=== PATIENT | male | born 1985 | race Caucasian/White ===

== ENCOUNTER 2016-12-08 14:47 | Emergency (ER) | payer OTHER ==
--- NOTE | 2016-12-08 15:15 | ED CLINICAL REPORT ---
Clinical Report - Physicians/Mid Levels [facility] [address] [place] [address] 12/08/2016 14:48 Patient: NADINE LINDQUIST Time Seen: 1503Dec 08 2016. Arrived- By private vehicle. Historian- patient. HISTORY OF PRESENT ILLNESS Chief Complaint: Injury to the left shoulder. 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 Patient did not fall. This was not an incised wound or caused by a direct blow. Patient is experiencing mild pain. Patient denies injury to the neck. ( right-hand dominant individual who is been experiencing left shoulder pain over the last few months, pain worsens with any activity, especially overhead, at times he has had paresthesias. Denies any pain with no movement. Denies any direct trauma or fall. 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 he denies shortness of breath, chest pain. Denies any recent illness. Denies history of PE or DVT.). REVIEW OF SYSTEMS The patient has had tingling. No skin laceration. All systems otherwise negative, except as recorded above. PAST HISTORY The patient's dominant hand is the right. SOCIAL HISTORY Never smoker. Alcohol use. ADDITIONAL NOTES The nursing notes have been reviewed. PHYSICAL EXAM Vital Signs: 12/08/2016 14:57 BP: 130/75. HR: 68. RR: 14. O2 saturation: 100%. Temp: 97.9 F. Pain level now: 6/10. Appearance: Alert. Head: Head atraumatic. CVS: Normal heart rate and rhythm. Heart sounds normal. Respiratory: No respiratory distress. Breath sounds normal. Skin: Skin warm. Normal skin color. Extremities: No upper extremity soft tissue tenderness. Left clavicle area. No tenderness or laceration. Left shoulder. No tenderness or swelling. Left arm. No tenderness or swelling. Left hand. (good ns) No abrasion or foreign body. (pain with elevation and abduction). Neuro, Vascular and Tendons: Vascular status intact. Motor intact. No functional tendon deficit. Neuro: Oriented X 3. PROGRESS AND PROCEDURES Course of Care: patient with ongoing symptoms over the last few months, at this time I do not suspect cardiac etiology. Patient has limited symptoms , Symptoms exacerbated by movement. Patient very stable. Followed outpatient. Patient requesting a sling, however this time he has fair range of motion I did not think a sling is beneficial, as it will have significant disuse of multiple other muscle groups for his upper extremity. Patient understands plan. Patient is stable. Physical exam findings are improved. Symptoms better. Patient/family counseled. Disposition: Discharged. Condition: good. CLINICAL IMPRESSION Acute cervical radiculopathy. Sprain of the left rotator cuff. INSTRUCTIONS Limit use of your left hand for seven days. Prescription Medications: Ibuprofen 800 mg tablets: take 1 tablet orally every 8 hours for 4 days, as needed for pain. Dispense twenty (20). No refill. Follow-up: Follow up with a specialist. [facility] , [address] [facility] [address] Follow up in one week. (Electronically signed by Oriana Silva P.A.-C 12/08/2016 15:17)
--- NOTE | 2016-12-08 15:15 | ED CLINICAL REPORT ---
Clinical Report - Physicians/Mid Levels [facility] [address] [place] [address] 12/08/2016 14:48 Patient: NADINE LINDQUIST Time Seen: 1503Dec 08 2016. Arrived- By private vehicle. Historian- patient. HISTORY OF PRESENT ILLNESS Chief Complaint: Injury to the left shoulder. 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 Patient did not fall. This was not an incised wound or caused by a direct blow. Patient is experiencing mild pain. Patient denies injury to the neck. ( right-hand dominant individual who is been experiencing left shoulder pain over the last few months, pain worsens with any activity, especially overhead, at times he has had paresthesias. Denies any pain with no movement. Denies any direct trauma or fall. 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 he denies shortness of breath, chest pain. Denies any recent illness. Denies history of PE or DVT.). REVIEW OF SYSTEMS The patient has had tingling. No skin laceration. All systems otherwise negative, except as recorded above. PAST HISTORY The patient's dominant hand is the right. SOCIAL HISTORY Never smoker. Alcohol use. ADDITIONAL NOTES The nursing notes have been reviewed. PHYSICAL EXAM Vital Signs: 12/08/2016 14:57 BP: 130/75. HR: 68. RR: 14. O2 saturation: 100%. Temp: 97.9 F. Pain level now: 6/10. Appearance: Alert. Head: Head atraumatic. CVS: Normal heart rate and rhythm. Heart sounds normal. Respiratory: No respiratory distress. Breath sounds normal. Skin: Skin warm. Normal skin color. Extremities: No upper extremity soft tissue tenderness. Left clavicle area. No tenderness or laceration. Left shoulder. No tenderness or swelling. Left arm. No tenderness or swelling. Left hand. (good ns) No abrasion or foreign body. (pain with elevation and abduction). Neuro, Vascular and Tendons: Vascular status intact. Motor intact. No functional tendon deficit. Neuro: Oriented X 3. PROGRESS AND PROCEDURES Course of Care: patient with ongoing symptoms over the last few months, at this time I do not suspect cardiac etiology. Patient has limited symptoms , Symptoms exacerbated by movement. Patient very stable. Followed outpatient. Patient requesting a sling, however this time he has fair range of motion I did not think a sling is beneficial, as it will have significant disuse of multiple other muscle groups for his upper extremity. Patient understands plan. Patient is stable. Physical exam findings are improved. Symptoms better. Patient/family counseled. Disposition: Discharged. Condition: good. CLINICAL IMPRESSION Acute cervical radiculopathy. Sprain of the left rotator cuff. INSTRUCTIONS Limit use of your left hand for seven days. Prescription Medications: Ibuprofen 800 mg tablets: take 1 tablet orally every 8 hours for 4 days, as needed for pain. Dispense twenty (20). No refill. Follow-up: Follow up with a specialist. [facility], , [address] [place] [address] Follow up in one week. (Electronically signed by Oriana Silva P.A.-C 12/08/2016 15:17)
--- NOTE | 2016-12-08 15:15 | ED NURSING NOTES ---
Clinical Report - Nurses [facility] [place] [address] [address] 12/08/2016 14:48 Patient: NADINE LINDQUIST TRIAGE Triage time 14:57. Acuity: LEVEL 5. Chief Complaint: RIGHT UPPER EXTREMITY PAIN and TINGLING. Location of symptoms- right shoulder, right arm and right elbow (tingling on fingers). --15: Devan Natarajan R.N. 14:57 12/08/16. BP: 130/75. HR: 68. RR: 14. O2 saturation: 100%. Temp: 97.9 F (oral). Pain level now: 11/22. --15: Devan Natarajan R.N. Weight: 78.4 kg stated. Height/Length: 72 inches Per Patient. BMI: 23.5. --15:00 Devan Natarajan R.N. Medications None. --14:59 Devan Natarajan R.N. Medication/allergy information source: the patient. --15: Devan Natarajan R.N. Allergies No Known Drug Allergy. --14:59 Devan Natarajan R.N. History Arrived by private vehicle. Historian: patient. ( Ongoing pain on left shoulder radiating to the left upper arm/elbow, pain is worse on movement. Normal ROM. Denies trauma or injury.). No injury occurred. Provoking / relieving factors: worsened by movement. SOCIAL HX: Never smoker. Occasional alcohol use; consumes wine by the glass. --15: Devan Natarajan R.N. 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 --15:02 Devan Natarajan R.N. PROBLEMS: URI. Healing Wound. --15:00 Devan Natarajan R.N. Interventions ID band on patient. --15:01 Devan Natarajan R.N. PHYSICAL ASSESSMENT Ambulatory to room. GENERAL / NEURO / PSYCH: Oriented X 4. Alert. Appears in no acute distress. EXTREMITIES: Extremities exhibit normal ROM. Neuro-vascular status intact to the extremity. No upper extremity edema. Left shoulder: tenderness located in the posterior aspect of the shoulder. Left arm. Left elbow. SKIN: Skin intact. Skin is warm and dry. --15:02 Devan Natarajan R.N. NURSING PROGRESS NOTES Cold pack applied. Neuro-vascular extremity check. Patient identifiers checked. Side rails up. Bed placed in lowest position. Brakes of bed on. Patient ready for evaluation- PA notified. --15:03 Devan Natarajan R.N. DISPOSITION / DISCHARGE Condition at departure: stable. No learning barriers present. Discharge instructions provided and reviewed with the patient. Reviewed medication(s) side effects, precautions, dosing and course information. Prescription(s) given to the patient. Reviewed referrals for followup (Ortho clinic). Activity restrictions (light lifting) reviewed. Work note given. Patient verbalized understanding. Written instructions provided in Yoruba. The patient was discharged home. He left the Emergency Department ambulatory and via private vehicle. Patient driving. ( applied ice pack on the shoulder). --15:13 Devan Natarajan R.N. 15:10 12/08/16. BP: 132/68. HR: 68. RR: 14. O2 saturation: 100%. Temp: deferred. Pain level now: 11/22. --15:13 Devan Natarajan R.N. Departure time: 15:13. --15:13 Devan Natarajan R.N. Locked/Released at 12/08/2016 15:13 by Devan Natarajan R.N.
--- NOTE | 2016-12-08 15:15 | ED NURSING NOTES ---
Clinical Report - Nurses [facility] [place] [address] 12/08/2016 14:48 Patient: NADINE LINDQUIST TRIAGE Triage time 14:57. Acuity: LEVEL 5. Chief Complaint: RIGHT UPPER EXTREMITY PAIN and TINGLING. Location of symptoms- right shoulder, right arm and right elbow (tingling on fingers). --15: Devan Natarajan R.N. 14:57 12/08/16. BP: 130/75. HR: 68. RR: 14. O2 saturation: 100%. Temp: 97.9 F (oral). Pain level now: 11/22. --15: Devan Natarajan R.N. Weight: 78.4 kg stated. Height/Length: 72 inches Per Patient. BMI: 23.5. --15:00 Devan Natarajan R.N. Medications None. --14:59 Devan Natarajan R.N. Medication/allergy information source: the patient. --15: Devan Natarajan R.N. Allergies No Known Drug Allergy. --14:59 Devan Natarajan R.N. History Arrived by private vehicle. Historian: patient. ( Ongoing pain on left shoulder radiating to the left upper arm/elbow, pain is worse on movement. Normal ROM. Denies trauma or injury.). No injury occurred. Provoking / relieving factors: worsened by movement. SOCIAL HX: Never smoker. Occasional alcohol use; consumes wine by the glass. --15: Devan Natarajan R.N. 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 --15:02 Devan Natarajan R.N. PROBLEMS: URI. Healing Wound. --15:00 Devan Natarajna R.N. Interventions ID band on patient. --15:01 Devan Natarajan R.N. PHYSICAL ASSESSMENT Ambulatory to room. GENERAL / NEURO / PSYCH: Oriented X 4. Alert. Appears in no acute distress. EXTREMITIES: Extremities exhibit normal ROM. Neuro-vascular status intact to the extremity. No upper extremity edema. Left shoulder: tenderness located in the posterior aspect of the shoulder. Left arm. Left elbow. SKIN: Skin intact. Skin is warm and dry. --15:02 Devan Natarajan R.N. NURSING PROGRESS NOTES Cold pack applied. Neuro-vascular extremity check. Patient identifiers checked. Side rails up. Bed placed in lowest position. Brakes of bed on. Patient ready for evaluation- PA notified. --15:03 Devan Natarajan R.N. DISPOSITION / DISCHARGE Condition at departure: stable. No learning barriers present. Discharge instructions provided and reviewed with the patient. Reviewed medication(s) side effects, precautions, dosing and course information. Prescription(s) given to the patient. Reviewed referrals for followup (Ortho clinic). Activity restrictions (light lifting) reviewed. Work note given. Patient verbalized understanding. Written instructions provided in Wolof. The patient was discharged home. He left the Emergency Department ambulatory and via private vehicle. Patient driving. ( applied ice pack on the shoulder). --15:13 Devan Natarajan R.N. 15:10 12/08/16. BP: 132/68. HR: 68. RR: 14. O2 saturation: 100%. Temp: deferred. Pain level now: 11/22. --15:13 Devan Natarajan R.N. Departure time: 15:13. --15:13 Devan Natarajan R.N. Locked/Released at 12/08/2016 15:13 by Devan Natarajan R.N.
--- NOTE | 2016-12-08 15:18 | ED DISCHARGE INSTRUCTIONS ---
Patient: NADINE LINDQUIST General Instructions [facility] VisitID: [id number] [address] [place] [address] 31y, M Registration Date/Time: 12/08/2016 Acute cervical radiculopathy. Sprain of the left rotator cuff. INSTRUCTIONS Limit use of your left hand for seven days. Prescription Medications: Ibuprofen 800 mg tablets: take 1 tablet orally every 8 hours for 4 days, as needed for pain. Dispense twenty (20). No refill. Follow-up: Follow up with a specialist. Follow-up with: [facility], [facility], , [address] [place], [address] Follow up in one week. ADDITIONAL INFORMATION Shoulder Sprain A sprain is a stretching or tearing of the ligaments that hold a joint together. A sprain may take up to six weeks to fully heal, depending on how severe it is. Moderate to severe shoulder sprains are treated with a sling or shoulder immobilizer. Minor sprains can be treated without any special support. Home care The following guidelines will help you care for your injury at home: If a sling was provided, leave it in place for the time advised by your doctor. If you are unsure how long to wear it, ask for advice. If the sling becomes loose, adjust it so that your forearm is level with the ground and the shoulder feels well supported. Apply an ice pack (ice cubes in a plastic bag, wrapped in a thin towel) over the injured area for 20 minutes every 12 hours the first day. Continue with ice packs 34 times a day for the next two days, then as needed for the relief of pain and swelling. You may use acetaminophen or ibuprofen to control pain, unless another pain medicine was prescribed.If you have chronic liver or kidney disease or ever had a stomach ulcer or GI bleeding, talk with your doctor before using these medicines. Shoulder joints become stiff if left in a sling for too long. Range of motion exercises should usually be started within the first ten days after injury. Consult your doctor on what type of exercises to do and how soon to start. Follow-up care Follow up with your doctor as directed. Any X-rays you had today dont show any broken bones, breaks, or fractures. Sometimes fractures dont show up on the first X-ray. Bruises and sprains can sometimes hurt as much as a fracture. These injuries can take time to heal completely. If your symptoms dont improve or they get worse, talk with your doctor. You may need a repeat X-ray. When to seek medical care Get prompt medical attention if any of the following occur: Increasing shoulder pain or arm swelling Fingers become cold, blue, numb, or tingly Large amount of bruising of the shoulder or upper arm Pinched Nerve, Neck [Cervical Radiculopathy] A pinched nerve in the neck (also called "Cervical Radiculopathy") is caused by irritation or pressure on the nerve that goes from the spinal cord to the arm. This may be caused by a bulging spinal disk (a "spinal disk" is the cushion between each spinal bone) or narrowing of the spinal joint due to arthritis. This can cause numbness, tingling, deep aching or electrical shooting pain from the side of the neck all the way down to the fingers on one side. A pinched nerve may begin after a sudden turning/bending force (such as in a car accident) or after a simple awkward movement. In either case, muscle spasm is commonly present and contributes to the pain. Home Care: 1) Rest and relax the muscles. Use a comfortable pillow that supports the head and keeps the spine in a neutral position. The position of the head should not be tilted forward or backward. A rolled up towel may help for a custom fit. 2) Some persons find relief with heat (hot shower, hot bath or heating pad) and massage, while others prefer cold packs (crushed or cubed ice in a plastic bag, wrapped in a towel) . Try both and use the method that feels best for 20 minutes several times a day. 3) You may use acetaminophen (Tylenol) or ibuprofen (Motrin, Advil) to control pain, unless another medicine was prescribed. [ NOTE : If you have chronic liver or kidney disease or ever had a stomach ulcer or GI bleeding, talk with your doctor before using these medicines.] Follow Up with your physician or this facility if your symptoms do not show signs of improvement after one week. Further testing may be needed. [NOTE: If x-rays were taken, they will be reviewed by a radiologist. You will be notified of any new findings that may affect your care.] Get Prompt Medical Attention if any of the following occur: -- Pain becomes worse and not controlled by prescribed pain medicine -- Weakness in the arm -- Increasing numbness in the arm -- Trouble breathing or swallowing You have been given the following additional information: Shoulder Sprain Radiculopathy, Cervical Limit use of your left hand for seven days. (Electronically signed by Oriana Silva P.A.-C 12/08/2016 15:17)
--- NOTE | 2016-12-08 15:18 | ED MED RECONCILIATION SUMMARY ---
Patient: NADINE LINDQUIST Medication Reconciliation Report [facility] VisitID: [id number] [place] [address] 31y, M Registration Date/Time: 12/08/2016 Weight: 78.4 kg Height/Length: 72 in. BMI: 23.5 ALLERGIES: No Known Drug Allergy The patient's Home Medications are listed below: NONE. The source(s) of the original Home Medication information: patient The following Medications were given to the patient in the Emergency Department: None. The following Medications were prescribed to the patient: Ibuprofen 800 mg tablets: take 1 tablet orally every 8 hours for 4 days, as needed for pain. Dispense twenty (20). No refill. -- Oriana Silva PMilkaAMilka-C
--- NOTE | 2016-12-08 15:18 | ED MED RECONCILIATION SUMMARY ---
Patient: NADINE LINDQUIST Medication Reconciliation Report [facility] VisitID: [id number] [place] [address] 31y, M Registration Date/Time: 12/08/2016 Weight: 78.4 kg Height/Length: 72 in. BMI: 23.5 ALLERGIES: No Known Drug Allergy The patient's Home Medications are listed below: NONE. The source(s) of the original Home Medication information: patient The following Medications were given to the patient in the Emergency Department: None. The following Medications were prescribed to the patient: Ibuprofen 800 mg tablets: take 1 tablet orally every 8 hours for 4 days, as needed for pain. Dispense twenty (20). No refill. -- Oriana Silva PMilkaAMilka-C
--- NOTE | 2016-12-08 15:18 | ED MAR SUMMARY ---
..... Medication Administration Record [facility] [address] [place] [address] Patient: NADINE LINDQUIST Visit ID: [id number] 31y, M Weight: 78.4 kg Height/Length: 72 in BMI: 23.5 ALLERGIES: No Known Drug Allergy
--- NOTE | 2016-12-08 15:18 | ED MAR SUMMARY ---
..... Medication Administration Record [facility] [address] [place] [address] Patient: NADINE LINDQUIST Visit ID: [id number] 31y, M Weight: 78.4 kg Height/Length: 72 in BMI: 23.5 ALLERGIES: No Known Drug Allergy
== END 2016-12-08 15:13 | disposition home or self-care (01) ==
LOC: ED SRH 14:47
DX: S43.422A Sprain of left rotator cuff capsule, initial encounter (principal); X58.XXXA Exposure to other specified factors, initial encounter; Y93.89 Activity, other specified; Y92.89 Other specified places as the place of occurrence of the external cause; Y99.8 Other external cause status; M54.12 Radiculopathy, cervical region

== ENCOUNTER 2017-01-02 21:38 | Emergency (ER) | payer OTHER ==
--- NOTE | 2017-01-03 00:13 | DIAGNOSTIC IMAGING REPORT ---
PROCEDURE: XR CERVICAL SPINE 2 OR 3 VIEW INDICATION: NECK PAIN TECHNIQUE: Three views. COMPARISON: None. FINDINGS: Straightening of the cervical lordosis. Osseous structures and disc spaces are otherwise normal. No evidence of an acute process or fracture. Impacted posterior molars. IMPRESSION: 1. Straightening of the cervical lordosis suggest cervical spasm. 2. Otherwise negative cervical spine. 3. Impacted posterior molars.
--- NOTE | 2017-01-03 00:53 | ED ORDER SUMMARY ---
..... Patient: NADINE CONCEPCION OrderSheet [facility] VisitID: [id number] [place] [address] 31y, M Registration Date/Time: 01/02/2017 ORDER SHEET Weight: 79.3 kg (stated) Allergies: No Known Drug Allergy GENERAL ORDERS: Cervical Spine 2 or 3V Urgent (23:25 01/02/2017 Michael Real) (Ack 23:31 [facility] Trailer Steerer) (0:23 CH[facility] Trailer Steerer) MEDICATION ORDERS: IV FLUIDS: ORDER SHEET NOTES: [Electronically signed by Devan Natarajan R.N. (01:00 01/03/2017)] [Electronically signed by García George Dr[address] (08:41 01/03/2017)] [Electronically locked/signed by Devan Natarajan R.N. (01:00 01/03/2017)]
--- NOTE | 2017-01-03 00:53 | ED NURSING NOTES ---
Clinical Report - Nurses [facility] [address] [place] [address] 01/02/2017 21:40 Patient: NADINE CONCEPCION TRIAGE Triage time 22:32. Acuity: LEVEL 4. Chief Complaint: LEFT UPPER EXTREMITY PAIN and TINGLING. Location of symptoms- left shoulder. --22:37 Devan Natarajan R.N. 22:32 01/02/17. BP: 113/69. HR: 81. RR: 16. O2 saturation: 99%. Temp: 98.1 F. Pain level now: 01/22. --22:37 Devan Natarajan R.N. Weight: 79.3 kg stated. Height/Length: 72 inches Per Patient. BMI: 23.7. --22:36 Devan Natarajan R.N. Medications None. --22:35 Devan Natarajan R.N. Medication/allergy information source: the patient. --22:37 Devan Natarajan R.N. Allergies No Known Drug Allergy. --22:35 Devan Natarajan R.N. History Arrived by private vehicle. Historian: patient. ( Was seen in ER 12/08 for left shoulder pain, no injury or trauma. Since then pain on left shoulder remains the same, increasing pain with ROM.). No injury occurred. This occurred (1 months ago). It is described as radiating to the left upper extremity, upper arm and forearm. 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 SURGERY HX: No history of previous surgery. SOCIAL HX: Never smoker. --22:37 Devan Natarajan R.N. PROBLEMS: Cervical Radiculopathy. Sprain. URI. Healing Wound. --22:35 Devan Natarajan R.N. Interventions ID band on patient. To room. --22:37 Devan Natarajan R.N. PHYSICAL ASSESSMENT Ambulatory to room. GENERAL / NEURO / PSYCH: Oriented X 4. Alert. Appears in no acute distress. EXTREMITIES: Limited ROM present in the left shoulder. Neuro-vascular status intact to the extremity. No upper extremity edema. Left shoulder. Limited ROM due to pain. SKIN: Skin intact. Skin is warm and dry. --22:37 Devan Natarajan R.N. NURSING PROGRESS NOTES Neuro-vascular extremity check. Patient identifiers checked. Call light placed in reach. Patient placed in chair. Patient ready for evaluation- ED physician notified. --22:38 Devan Natarajan R.N. DISPOSITION / DISCHARGE Condition at departure: improved. No learning barriers present. Discharge instructions provided and reviewed with the patient. Reviewed medication(s) side effects, precautions, dosing and course information. Prescription(s) given to the patient. Reviewed referral to a primary care physician for followup. Patient verbalized understanding. Written instructions provided in Namibian. The patient was discharged home. He left the Emergency Department ambulatory and via private vehicle. Patient driving. --01:00 Devan Natarajan R.N. 00:58 01/03/17. BP: 120/81. HR: 71. RR: 16. O2 saturation: 100%. Temp: 98.0 F. --01:00 Devan Natarajan R.N. Departure time: 01:00. --01:00 Devan Natarajan R.N. Locked/Released at 01/03/2017 1:00 by Devan Natarajan R.N.
--- NOTE | 2017-01-03 00:53 | ED NURSING NOTES ---
Clinical Report - Nurses [facility] [address] [place] [address] 01/02/2017 21:40 Patient: NADINE CONCEPCION TRIAGE Triage time 22:32. Acuity: LEVEL 4. Chief Complaint: LEFT UPPER EXTREMITY PAIN and TINGLING. Location of symptoms- left shoulder. --22:37 Devan Natarajan R.N. 22:32 01/02/17. BP: 113/69. HR: 81. RR: 16. O2 saturation: 99%. Temp: 98.1 F. Pain level now: 01/22. --22:37 Devan Natarajan R.N. Weight: 79.3 kg stated. Height/Length: 72 inches Per Patient. BMI: 23.7. --22:36 Devan Natarajan R.N. Medications None. --22:35 Devan Natarajan R.N. Medication/allergy information source: the patient. --22:37 Devan Natarajan R.N. Allergies No Known Drug Allergy. --22:35 Devan Natarajan R.N. History Arrived by private vehicle. Historian: patient. ( Was seen in ER 12/08 for left shoulder pain, no injury or trauma. Since then pain on left shoulder remains the same, increasing pain with ROM.). No injury occurred. This occurred (1 months ago). It is described as radiating to the left upper extremity, upper arm and forearm. 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 SURGERY HX: No history of previous surgery. SOCIAL HX: Never smoker. --22:37 Devan Natarajan R.N. PROBLEMS: Cervical Radiculopathy. Sprain. URI. Healing Wound. --22:35 Devan Natarajan R.N. Interventions ID band on patient. To room. --22:37 Devan Natarajan R.N. PHYSICAL ASSESSMENT Ambulatory to room. GENERAL / NEURO / PSYCH: Oriented X 4. Alert. Appears in no acute distress. EXTREMITIES: Limited ROM present in the left shoulder. Neuro-vascular status intact to the extremity. No upper extremity edema. Left shoulder. Limited ROM due to pain. SKIN: Skin intact. Skin is warm and dry. --22:37 Devan Natarajan R.N. NURSING PROGRESS NOTES Neuro-vascular extremity check. Patient identifiers checked. Call light placed in reach. Patient placed in chair. Patient ready for evaluation- ED physician notified. --22:38 Devan Natarajan R.N. DISPOSITION / DISCHARGE Condition at departure: improved. No learning barriers present. Discharge instructions provided and reviewed with the patient. Reviewed medication(s) side effects, precautions, dosing and course information. Prescription(s) given to the patient. Reviewed referral to a primary care physician for followup. Patient verbalized understanding. Written instructions provided in Italian. The patient was discharged home. He left the Emergency Department ambulatory and via private vehicle. Patient driving. --01:00 Devan Natarajan R.N. 00:58 01/03/17. BP: 120/81. HR: 71. RR: 16. O2 saturation: 100%. Temp: 98.0 F. --01:00 Devan Natarajan R.N. Departure time: 01:00. --01:00 Devan Natarajan R.N. Locked/Released at 01/03/2017 1:00 by Devan Natarajan R.N.
--- NOTE | 2017-01-03 00:53 | ED ORDER SUMMARY ---
..... Patient: NADINE CONCEPCION OrderSheet [facility] VisitID: [id number] [place] [address] 31y, M Registration Date/Time: 01/02/2017 ORDER SHEET Weight: 79.3 kg (stated) Allergies: No Known Drug Allergy GENERAL ORDERS: Cervical Spine 2 or 3V Urgent (23:25 01/02/2017 Michael Real) (Ack 23:31 [facility] Acting Instructor) (0:23 CHagerty [facility] Acting Instructor) MEDICATION ORDERS: IV FLUIDS: ORDER SHEET NOTES: [Electronically signed by Devan Natarajan R.N. (01:00 01/03/2017)] [Electronically signed by García George Dr. (08:41 01/03/2017)] [Electronically locked/signed by Devan Natarajan R.N. (01:00 01/03/2017)]
--- NOTE | 2017-01-03 00:53 | ED CLINICAL REPORT ---
Clinical Report - Physicians/Mid Levels [facility] [address] [place] [address] 01/02/2017 21:40 Patient: NADINE CONCEPCION Time Seen: 22:53; initial patient contact. Arrived- By private vehicle. Historian- patient. HISTORY OF PRESENT ILLNESS Chief Complaint: Injury to left shoulder. The injury happened several months ago. Patient did not fall. This was not a raising of the arm dislocation or twisting injury. Occurred at home. Patient is experiencing mild pain. Patient denies injury to the head or neck. REVIEW OF SYSTEMS The patient has had tingling. No swelling, numbness, weakness or neck pain. All systems otherwise negative, except as recorded above. PAST HISTORY Cervical Radiculopathy. Sprain. URI. Healing Wound. Additional Surgeries: no known surgeries. Medications: None. Allergies: No Known Drug Allergy. SOCIAL HISTORY Never smoker. No alcohol use or drug use. ADDITIONAL NOTES The nursing notes have been reviewed. PHYSICAL EXAM Vital Signs: 01/02/2017 22:32 BP: 113/69. HR: 81. RR: 16. O2 saturation: 99%. Temp: 98.1 F. Pain level now: 8/10. Have been reviewed as normal. Appearance: Alert. Oriented X3. No acute distress. Neck: Mild acute decrease in ROM secondary to pain. Moderate muscle spasm of the left posterior neck. No vertebral tenderness. Skin: Skin warm and dry. Normal skin color. Extremities: Left shoulder. Neurovascular intact distally. No erythema, tenderness, swelling, ecchymosis or deformity. No limitation in ROM. Extremities otherwise negative. Neuro, Vascular and Tendons: Sensation intact. Motor intact. Vascular status intact. Tendon function intact. Neuro: Oriented X 3. No motor deficit. No sensory deficit. Reflexes normal. LABS, X-RAYS, AND EKG C-Spine X-rays: Moderate straightening of the cervical spine. Views: 3 view C-spine series. Technique: good. The X-rays were independently viewed by me and interpreted contemporaneously by me. Prior films were not available for comparison. PROGRESS AND PROCEDURES Disposition: Discharged home in good and improved condition. Condition: good. CLINICAL IMPRESSION Acute cervical strain. INSTRUCTIONS Your Current Medications: CONTINUE TAKING THE FOLLOWING MEDICATIONS: None*. Prescription Medications: Baclofen 20 mg: take 1 orally every 8 hours. Dispense thirty (30). No refills. Follow-up: Follow up with your doctor in about one week. Call for an appointment. Screening today revealed the patient's blood pressure to be in the normal range. (Electronically signed by García George Dr. 01/03/2017 8:41)
--- NOTE | 2017-01-03 00:53 | ED CLINICAL REPORT ---
Clinical Report - Physicians/Mid Levels [facility] [address] [place] [address] 01/02/2017 21:40 Patient: NADINE CONCEPCION Time Seen: 22:53; initial patient contact. Arrived- By private vehicle. Historian- patient. HISTORY OF PRESENT ILLNESS Chief Complaint: Injury to left shoulder. The injury happened several months ago. Patient did not fall. This was not a raising of the arm dislocation or twisting injury. Occurred at home. Patient is experiencing mild pain. Patient denies injury to the head or neck. REVIEW OF SYSTEMS The patient has had tingling. No swelling, numbness, weakness or neck pain. All systems otherwise negative, except as recorded above. PAST HISTORY Cervical Radiculopathy. Sprain. URI. Healing Wound. Additional Surgeries: no known surgeries. Medications: None. Allergies: No Known Drug Allergy. SOCIAL HISTORY Never smoker. No alcohol use or drug use. ADDITIONAL NOTES The nursing notes have been reviewed. PHYSICAL EXAM Vital Signs: 01/02/2017 22:32 BP: 113/69. HR: 81. RR: 16. O2 saturation: 99%. Temp: 98.1 F. Pain level now: 8/10. Have been reviewed as normal. Appearance: Alert. Oriented X3. No acute distress. Neck: Mild acute decrease in ROM secondary to pain. Moderate muscle spasm of the left posterior neck. No vertebral tenderness. Skin: Skin warm and dry. Normal skin color. Extremities: Left shoulder. Neurovascular intact distally. No erythema, tenderness, swelling, ecchymosis or deformity. No limitation in ROM. Extremities otherwise negative. Neuro, Vascular and Tendons: Sensation intact. Motor intact. Vascular status intact. Tendon function intact. Neuro: Oriented X 3. No motor deficit. No sensory deficit. Reflexes normal. LABS, X-RAYS, AND EKG C-Spine X-rays: Moderate straightening of the cervical spine. Views: 3 view C-spine series. Technique: good. The X-rays were independently viewed by me and interpreted contemporaneously by me. Prior films were not available for comparison. PROGRESS AND PROCEDURES Disposition: Discharged home in good and improved condition. Condition: good. CLINICAL IMPRESSION Acute cervical strain. INSTRUCTIONS Your Current Medications: CONTINUE TAKING THE FOLLOWING MEDICATIONS: None*. Prescription Medications: Baclofen 20 mg: take 1 orally every 8 hours. Dispense thirty (30). No refills. Follow-up: Follow up with your doctor in about one week. Call for an appointment. Screening today revealed the patient's blood pressure to be in the normal range. (Electronically signed by García George Dr. 01/03/2017 8:41)
--- NOTE | 2017-01-03 08:41 | ED MAR SUMMARY ---
..... Medication Administration Record [facility] [address] [place], [place] [id number] Patient: NADINE CONCEPCION Visit ID: [id number] 31y, M Weight: 79.3 kg Height/Length: 72 in BMI: 23.7 ALLERGIES: No Known Drug Allergy
--- NOTE | 2017-01-03 08:41 | ED MED RECONCILIATION SUMMARY ---
Patient: NADINE CONCEPCION Medication Reconciliation Report [facility] VisitID: [id number] [address] [place] [address] 31y, M Registration Date/Time: 01/02/2017 Weight: 79.3 kg Height/Length: 72 in. BMI: 23.7 ALLERGIES: No Known Drug Allergy The patient's Home Medications are listed below: NONE. The source(s) of the original Home Medication information: patient The following Medications were given to the patient in the Emergency Department: None. The following Medications were prescribed to the patient: Baclofen 20 mg: take 1 orally every 8 hours. Dispense thirty (30). No refills. -- García George Dr.
--- NOTE | 2017-01-03 08:41 | ED DISCHARGE INSTRUCTIONS ---
Patient: NADINE CONCEPCION General Instructions [facility] VisitID: [id number] [place] [address] 31y, M Registration Date/Time: 01/02/2017 Acute cervical strain. INSTRUCTIONS Your Current Medications: CONTINUE TAKING THE FOLLOWING MEDICATIONS: None*. Prescription Medications: Baclofen 20 mg: take 1 orally every 8 hours. Dispense thirty (30). No refills. Follow-up: Follow up with your doctor in about one week. Call for an appointment. Screening today revealed the patient's blood pressure to be in the normal range. ADDITIONAL INFORMATION Neck Sprain Or Strain A sudden force that causes turning or bending of the neck (such as in a car accident) can stretch or tear muscles (strain) and ligaments (sprain) and cause neck pain. Sometimes neck pain occurs after a simple awkward movement. In either case, muscle spasm is commonly present and contributes to the pain. Unless you had a forceful physical injury (for example, a car accident or fall), X-rays are usually not ordered for the initial evaluation of neck pain. If pain continues and dose not respond to medical treatment, X-rays and other tests may be performed at a later time. Home care The following guidelines will help you care for your injury at home: You may feel more soreness and spasm the first few days after the injury. Reduce your activity level until symptoms begin to improve. When lying down, use a comfortable pillow that supports the head and keeps the spine in a neutral position. The position of the head should not be tilted forward or backward. Use ice packs (ice in a plastic bag, wrapped in a towel) to treat acute pain. Apply for 20 minutes every 24 hours during the first two days. Then, begin local heat (hot shower, hot bath or heating pad) andmassageto reduce muscle spasm. Some patients feel best alternating hot and cold treatments, or just staying with one method only. Do what feels the best to you and gives the most relief. You may use acetaminophen or ibuprofen to control pain, unless another pain medicine was prescribed.If you have chronic liver or kidney disease or ever had a stomach ulcer or GI bleeding, talk with your doctor before using these medicines. Follow-up care Follow up with your physician or this facility if your symptoms do not show signs of improvement. Physical therapy may be needed. If you had X-rays today, they didnt show any broken bones, breaks, or fractures. Sometimes fractures dont show up on the first X-ray. Bruises and sprains can sometimes hurt as much as a fracture. These injuries can take time to heal completely. If your symptoms dont improve or they get worse, talk with your doctor. You may need a repeat X-ray. When to seek medical care Get prompt medical attention if any of the following occur: Pain becomes worse or spreads into your arms Weakness or numbness in one or both arms You have been given the following additional information: Neck Sprain/Strain (Electronically signed by García George Dr. 01/03/2017 8:41)
--- NOTE | 2017-01-03 08:41 | ED MED RECONCILIATION SUMMARY ---
Patient: NADINE CONCEPCION Medication Reconciliation Report [facility] VisitID: [id number] [address] [place] [address] 31y, M Registration Date/Time: 01/02/2017 Weight: 79.3 kg Height/Length: 72 in. BMI: 23.7 ALLERGIES: No Known Drug Allergy The patient's Home Medications are listed below: NONE. The source(s) of the original Home Medication information: patient The following Medications were given to the patient in the Emergency Department: None. The following Medications were prescribed to the patient: Baclofen 20 mg: take 1 orally every 8 hours. Dispense thirty (30). No refills. -- García George Dr.
--- NOTE | 2017-01-03 08:41 | ED MAR SUMMARY ---
..... Medication Administration Record [facility] [address] [place], [place] [id number] Patient: NADINE CONCEPCION Visit ID: [id number] 31y, M Weight: 79.3 kg Height/Length: 72 in BMI: 23.7 ALLERGIES: No Known Drug Allergy
== END 2017-01-03 01:00 | disposition home or self-care (01) ==
LOC: ED SRH 21:38
DX: S16.1XXA Strain of muscle, fascia and tendon at neck level, initial encounter (principal); X58.XXXA Exposure to other specified factors, initial encounter; Y93.9 Activity, unspecified; Y99.9 Unspecified external cause status; Y92.9 Unspecified place or not applicable